=== PATIENT | male | born 1970 | race Caucasian/White ===

== ENCOUNTER → 2016-10-22 | Outpatient (CLI) | payer BC ==
[~2016-10-22] MED LIST: CATHETER FLUSH 10 ML SYR IV PRN
[2016-10-22 10:52] VITALS: BP 120/84
--- NOTE | 2016-10-22 18:53 | STRESS TEST ---
PROCEDURE PHYSICIAN: MARVA EGAN DATE OF PROCEDURE: 10/22/2016 EXERCISE MYOVIEW STRESS TEST REPORT INDICATION FOR THE PROCEDURE: Chest pain. BASELINE HEART RATE: 46 BASELINE BLOOD PRESSURE: 120/84 BASELINE EKG: Sinus rhythm with no ischemic changes. SUMMARY: The patient was injected with 10.01 mCi of technetium 99 Myoview and the resting images were obtained. Then the patient started exercising with baseline heart rate, blood pressure, EKG mentioned above. At minute 9 and 40 seconds, the patient was injected with 30.1 mCi of technetium 99 Myoview. The patient was able to finish a total of 10 minutes 45 seconds on standard Armani protocol, achieving maximum heart rate of 161, which is 94% of maximum expected heart rate. With peak exercise level, EKG was showing no ischemic changes. Blood pressure was 170/108 at peak. During recovery, heart rate returned to baseline, had transient episode of ventricular bigeminy. Blood pressure returned to baseline. The resting and stress images were reviewed and compared in the short axis, horizontal long axis, and vertical long axis views. Review of the images showed diaphragmatic attenuation with decreased uptake at the basal to mid inferior wall, with no significant ischemia. SSS is 0. TID value 0.94. On the gated images, the left ventricle appeared to be normal size with normal contractility. Calculated ejection fraction 52%. CONCLUSION: 1. Excellent exercise tolerance a total of 10 minutes 45 seconds on standard Armani protocol. Total of 12.8 METs, achieving 94% of maximum expected heart rate. 2. Transient episode of ventricular bigeminy noted during recovery, otherwise, no arrhythmia was noted. 3. Nondiagnostic EKG changes with exercise. Returned to baseline during recovery. 4. Diaphragmatic attenuation with no significant ischemia or infarction on SPECT images. 5. Normal left ventricular size with normal contractility. Calculated ejection fraction 52%. Job ID: [id number] Dictated Date: 10/22/2016 17:14:48 Spindle Plumber Date: 10/22/2016 18:49:41 / crow
--- NOTE | 2016-10-24 09:23 | ECHOCARDIOGRAPHY REPORT ---
PROCEDURE PHYSICIAN: MARVA EGAN DATE OF PROCEDURE: 10/22/2016 TWO DIMENSIONAL ECHOCARDIOGRAM REPORT PRIMARY PHYSICIAN: OTHER PHYSICIAN: REFERRING PHYSICIAN: ORDERING PHYSICIAN: INDICATION FOR THE PROCEDURE: Chest pain. MEASUREMENTS DERIVED VALUES LV DIAMETER (LAX) NORMALS NORMALS Diastolic 4.8 (3.6-5.2) Eject. Fract. 60% (60%+/-6%) Systolic (2.3-3.9) Diastolic Vol. % Shortening (0.22-0.42) Systolic Vol. Aortic Root IVS THICKNESS Diastolic 1.2 (0.6-1.1) LVPW THICKNESS Diastolic 1.2 (0.6-1.1) LA DIAMETER Systolic 3.7 (2.1-3.7) FINDINGS: 1. Technical quality is good. 2. The left ventricle is normal in size with normal contractility. Systolic function appeared to be normal. Estimated ejection fraction 60%. 3. The left atrium is normal in size. No clot or thrombus were seen within the left atrium. 4. The right atrium and right ventricle are normal in size. No clot or thrombus were seen within the right side. 5. Mitral valve is normal in morphology with mild mitral regurgitation noted by color Doppler flow. No mitral valve prolapse. No mitral valve stenosis. 6. Aortic valve is trileaflet with normal opening and closing pattern. No significant aortic valve stenosis was noted. Mild aortic regurgitation noted by color Doppler flow. 7. Tricuspid valve is normal in morphology with mild tricuspid regurgitation noted by color Doppler flow. Doppler across tricuspid valve estimated pulmonary artery pressure of 9+ right atrial pressure. 8. Pulmonic valve is functioning normally. 9. No pericardial effusion. IN CONCLUSION: 1. Normal left ventricular size and systolic function. Estimated ejection fraction 60%. 2. Mild mitral and tricuspid regurgitation. 3. Mild aortic regurgitation. 4. Estimated pulmonary artery pressure of 15 mmHg. Job ID: [id number] Dictated Date: 10/23/2016 16:07:21 Eeg Tech Date: 10/24/2016 09:18:49 / mary
== END ==
LOC: CARD 08:16
PROVIDERS: ATTEND Internal Medicine Cardiovascular Disease
DX: R07.89 Other chest pain (principal); I10 Essential (primary) hypertension; R00.2 Palpitations; R06.02 Shortness of breath; Z72.0 Tobacco use
CPT/HCPCS: 78452; 93017; 93306

== ENCOUNTER → 2018-08-20 | Outpatient (CLI) | payer BC ==
--- NOTE | 2018-08-20 08:23 | Diagnostic Imaging Report ---
PROCEDURE: CT abdomen and pelvis without contrast. TECHNIQUE: Multiple contiguous axial images were obtained through the abdomen and pelvis without the use of intravenous contrast. INDICATION: Microhematuria. COMPARISON: No prior studies are available for comparison. FINDINGS: The lung bases are clear. The liver and gallbladder are unremarkable. The pancreas and spleen are unremarkable. No adrenal mass is detected. No renal calculi or hydronephrosis is identified. There is a suggestion of a small cortical low densities involving both kidneys, too small to characterize but likely small cysts. The bladder is decompressed, limiting evaluation. Ureters are nondilated. Aorta is nonaneurysmal. The small and large bowel loops are normal caliber. Appendix is unremarkable. There is no ascites. No definite abdominal or pelvic lymphadenopathy is seen. Bony structures are nonacute. IMPRESSION: Essentially unremarkable noncontrast CT of the abdomen and pelvis. Dictated by: Dictated on workstation # [id number]
== END ==
LOC: RAD 07:37
PROVIDERS: ATTEND Urology
DX: R31.29 Other microscopic hematuria (principal); Z87.442 Personal history of urinary calculi
CPT/HCPCS: 74176

== ENCOUNTER 2019-12-28 11:28 | Emergency (ER) | payer BC, OTHER ==
[~2019-12-28] VITALS: Ht 182 cm; Wt 93.9 kg
--- NOTE | 2019-12-28 11:56 | ED Abdominal Pain ---
General Chief Complaint: Abdominal/GI Problems Stated Complaint: RLQ PAIN; NAUSEA; FEVER; DIARRHEA Nursing Triage Note: Started having diarrhea and RLQ abdominal pain at 0930 this morning. Had just returned from a camping trip this morning. Has vomited 6 times, but not large amounts. Has had 3 diarrhea stools. Is unsure of color. Is rating pain at 3/10 but was previously 9/10. Has not taken anything for pain. No previous abdominal surgeries. Denies fevers. Sepsis Screen: No Definite Risk Source of Information: Patient Exam Limitations: No Limitations History of Present Illness Date Seen by Provider: December 28, 2019 Time Seen by Provider: 11:40 Initial Comments 49-year-old male presents to the emergency room after a camping trip and reports that he had immediate and sudden pain in his right lower quadrant at 9:30 this morning. Patient denied any trauma and denies any prior event. She states the pain was sudden extremely painful 9/10 and resolved but still is painful 3/10 now patient states he's worried about appendicitis. He states he had an episode of diarrhea he finally did 6 times he feels chills but is normal temperature at this time. He is not taking anything for pain at this time he has given informed consent for diagnostic and therapeutic services. He has no history of cardiac pulmonary GI or renal disease. Negative psoas and negative obturator signs No prior history of surgeries. Anterior abdominal wall that is somewhat reddened from what appears to be excoriation but no breaks in the skin. This dictation utilizes [employer] software. Efforts have been made to correct all errors. Some errors or able to penetrate the review process. This is not an intentional event. If you have any questions regarding this dictation please contact Jayesh Collins [phone] Timing/Duration: 1-3 Hours Severity/Quality: Moderate (valve patient states it was severe 2 hours ago) Location: RLQ (severe stabbing pain in tenths 2 hours ago now continues to ache) Radiation: Back Activities at Onset: Activity (unpacking truck), Rest Modifying Factors: Improves With Breathing, Improves With Lying down, Improves With Vomiting Associated Symptoms: Back Pain (lumbar paraspinal spasms -negative JEYSON negative obturator sign patient does have pain on palpation pain and rebound), Nausea/Vomiting, Weakness Allergies and Home Medications Allergies Coded Allergies: ciprofloxacin (Verified Allergy, Unknown, hives, itching, 12/28/19) Patient Home Medication List Home Medication List Reviewed: Yes Review of Systems Review of Systems Constitutional: see HPI, chills, weakness (from right lower quadrant pain) EENTM: No Symptoms Reported Respiratory: No Symptoms Reported Cardiovascular: No Symptoms Reported Gastrointestinal: See HPI, Abdominal Pain (right lower quadrant negative psoas and negative upgrader signs), Nausea, Vomiting Genitourinary: See HPI Musculoskeletal: see HPI, back pain (lumbar paraspinal muscles right side spast ic), muscle stiffness (right side flank) Skin: no symptoms reported (however patient has excoriated the lower abdominal wall no open lesions) Psychiatric/Neurological: See HPI, Anxiety Endocrine: No Symptoms Reported Hematologic/Lymphatic: No Symptoms Reported Past Xnepnzk-Ayfgiu-Wjmema Hx Past Med/Social Hx: Reviewed Nursing Past Med/Soc Hx Patient Social History Alcohol Use: Occasionally Uses Recreational Drug Use: No Smoking Status: Current Everyday Smoker Type Used: Cigarettes 2nd Hand Smoke Exposure: Yes Recent Foreign Travel: No Contact w/Someone Who Travel: No Recent Infectious Disease Expo: No Recent Hopitalizations: No Seasonal Allergies Seasonal Allergies: No Past Medical History Surgeries: Yes (ganglion cyst; ) Orthopedic Respiratory: No Cardiac: Yes Hypertension Neurological: Yes Headaches /Migraines Genitourinary: No Gastrointestinal: No Musculoskeletal: No Endocrine: No HEENT: No Cancer: No Psychosocial: No Integumentary: No Family Medical History Reviewed Nursing Family Hx Physical Exam Vital Signs Vital Signs - First Documented 12/28/19 11:32 Temp 35.9 Pulse 67 Resp 16 B/P (MAP) 143/101 (115) Pulse Ox 94 Capillary Refill : Less Than 3 Seconds Height/Weight/BMI Height: '" Weight: lbs. oz. kg; 28.00 BMI Method: General Appearance: moderate distress (and reports it was severe 2 hours ago) HEENT: PERRL/EOMI, normal ENT inspection, pharynx normal Neck: non-tender, full range of motion, supple, normal inspection Respiratory: chest non-tender, lungs clear, normal breath sounds, no respiratory distress, no accessory muscle use Cardiovascular: regular rate, rhythm, no edema, no gallop, no JVD, no murmur Peripheral Pulses: 2+ Carotid (R), 2+ Carotid (L) Gastrointestinal: normal bowel sounds, non tender, soft, no organomegaly, no pulsatile mass, other (negative operators and negative psoas sign) Extremities: normal range of motion, non-tender, normal inspection, no pedal edema, no calf tenderness Back: normal inspection, no vertebral tenderness, CVA tenderness (R) Neurologic/Psychiatric: line up examiner II-XII nml as tested, no motor/sensory deficits, al ert, normal mood/affect, oriented x 3 Skin: normal color, warm/dry Lymphatic: no adenopathy Focused Exam Lactate Level 12/28/19 12:10: Lactic Acid Level 0.83 Lactic Acid Level Laboratory Tests Test 12/28/19 12:10 Lactic Acid Level 0.83 MMOL/L (0.50-2.00) Progress/Results/Core Measures Results/Orders Lab Results Laboratory Tests Test 12/28/19 11:58 12/28/19 12:10 Range/Units Urine Color YELLOW Urine Clarity SLT CLOUDY Urine pH 5.5 5-9 Urine Specific [place] >=1.030 1.016-1.022 Urine Protein 2+ H NEGATIVE Urine Glucose (UA) NEGATIVE NEGATIVE Urine Ketones NEGATIVE NEGATIVE Urine Nitrite NEGATIVE NEGATIVE Urine Bilirubin 1+ H NEGATIVE Urine Urobilinogen 0.2 < = 1.0 MG/DL Urine Leukocyte Esterase NEGATIVE NEGATIVE Urine RBC (Auto) 3+ H NEGATIVE Urine RBC 25-50 H /HPF Urine WBC NONE /HPF Urine Squamous Epithelial Cells NONE /HPF Urine Crystals NONE /LPF Urine Bacteria NEGATIVE /HPF Urine Casts NONE /LPF Urine Mucus SMALL H /LPF Urine Culture Indicated NO White Blood Count 5.9 4.3-11.0 10^3/uL Red Blood Count 5.42 4.35-5.85 10^6/uL Hemoglobin 17.2 13.3-17.7 G/DL Hematocrit 49 40-54 % Mean Corpuscular Volume 90 80-99 FL Mean Corpuscular Hemoglobin 32 25-34 PG Mean Corpuscular Hemoglobin Concent 35 32-36 G/DL Red Cell Distribution Width 12.8 10.0-14.5 % Platelet Count 157 130-400 10^3/uL Mean Platelet Volume 9.4 7.4-10.4 FL Neutrophils (%) (Auto) 63 42-75 % Lymphocytes (%) (Auto) 23 12-44 % Monocytes (%) (Auto) 10 0-12 % Eosinophils (%) (Auto) 4 0-10 % Basophils (%) (Auto) 0 0-10 % Neutrophils # (Auto) 3.7 1.8-7.8 X 10^3 Lymphocytes # (Auto) 1.3 1.0-4.0 X 10^3 Monocytes # (Auto) 0.6 0.0-1.0 X 10^3 Eosinophils # (Auto) 0.3 0.0-0.3 10^3/uL Basophils # (Auto) 0.0 0.0-0.1 10^3/uL Neutrophils % (Manual) 61 % Lymphocytes % (Manual) 29 % Monocytes % (Manual) 4 % Eosinophils % (Manual) 5 % Basophils % (Manual) 1 % Band Neutrophils 0 % Prothrombin Time 13.6 12.2-14.7 SEC INR Comment 1.0 0.8-1.4 Activated Partial Thromboplast Time 24 24-35 SEC Sodium Level 143 135-145 MMOL/L Potassium Level 4.1 3.6-5.0 MMOL/L Chloride Level 109 H 98-107 MMOL/L Carbon Dioxide Level 24 21-32 MMOL/L Anion Gap 10 5-14 MMOL/L Blood Urea Nitrogen 12 7-18 MG/DL Creatinine 1.26 0.60-1.30 MG/DL Estimat Glomerular Filtration Rate 60 BUN/Creatinine Ratio 10 Glucose Level 104 70-105 MG/DL Lactic Acid Level 0.83 0.50-2.00 MMOL/L Calcium Level 9.3 8.5-10.1 MG/DL Corrected Calcium 9.1 8.5-10.1 MG/DL Total Bilirubin 0.7 0.1-1.0 MG/DL Aspartate Amino Transf (AST/SGOT) 19 5-34 U/L Alanine Aminotransferase (ALT/SGPT) 24 0-55 U/L Alkaline Phosphatase 92 40-136 U/L Total Protein 7.3 6.4-8.2 GM/DL Albumin 4.3 3.2-4.5 GM/DL My Orders Orders - JAYESH COLLINS DO Cbc And Manual Diff (12/28/19 11:47) Comprehensive Metabolic Panel (12/28/19 11:47) Lactic Acid Analyzer (12/28/19 11:47) Blood Culture (12/28/19 11:47) Urinalysis (12/28/19 11:47) Partial Thromboplastin Time (12/28/19 11:47) Protime With Inr (12/28/19 11:47) Ct Abd/Pelv W (Appendicitis) (12/28/19 11:47) Chest 1 View Ap/Pa Only (12/28/19 11:47) Ns Iv 1000 Ml (Sodium Chloride 0.9%) (12/28/19 12:00) Nothing By Mouth (12/28/19 Dinner) Iohexol Injection (Omnipaque 350 Mg/Ml 1 (12/28/19 12:45) Received Contrast (Hold Metformin- Contr (12/28/19 12:45) Sodium Chloride Flush (Catheter Flush Sy (12/28/19 12:45) Ns (Ivpb) (Sodium Chloride 0.9% Ivpb Bag (12/28/19 12:45) Medications Given in ED Current Medications Medications Dose Ordered Sig/Ashutosh Route Start Time Stop Time Status Last Admin Dose Admin Iohexol 100 ml ONCE ONCE IV 12/28/19 12:45 12/28/19 12:46 DC 12/28/19 13:30 100 ML Sodium Chloride 10 ml NEEDED PRN IV 12/28/19 12:45 12/28/19 13:23 10 ML Sodium Chloride 100 ml ONCE ONCE IV 12/28/19 12:45 12/28/19 12:46 DC 12/28/19 13:30 80 ML Sodium Chloride 1,000 ml @ 100 mls/hr Q10H ONCE IV 12/28/19 12:00 12/28/19 21:59 12/28/19 12:09 100 MLS/HR Vital Signs/I&O 12/28/19 11:32 Temp 35.9 Pulse 67 Resp 16 B/P (MAP) 143/101 (115) Pulse Ox 94 Blood Pressure Mean: 115 Progress Progress Note : Time: 14:30 Progress Note Patient has negative CT scan for appendicitis. He has been informed and he will follow-up with his primary care provider. He also has a slight abnormality in the right upper chest which is unrelated to any of the presentation. Patient will follow up with his primary care provider for continued evaluation and care this could be simply an overlapping osseous structure IMPRESSION: 1. There is no evidence for an acute abnormality at the abdomen and pelvis. In particular there is no sign of appendicitis. 2. The hiatal hernia seen previously is again evident perhaps somewhat more prominent. Initial ECG Impression Date: December 28, 2019 Departure Impression Primary Impression: Nausea and vomiting Additional Impressions: Abdominal pain Dehydration Disposition: 01 HOME, SELF-CARE Condition: Improved Departure-Patient Inst. Decision time for Depature: 14:32 Referrals: SUSY ALBA MD (PCP/Family) Primary Care Physician Patient Instructions: Dehydration, Adult (DC), Nausea and Vomiting, Adult, Viral Gastroenteritis, Adult (DC) Add. Discharge Instructions: Fluids and rest patient's evaluation was negative for appendicitis. IMPRESSION: 1. There is no evidence for an acute abnormality at the abdomen and pelvis. In particular there is no sign of appendicitis. 2. The hiatal hernia seen previously is again evident perhaps somewhat more prominent. Patient will continue on clear fluids and follow-up with primary care provider. Is mild abnormality which is unrelated to the patient's presentation in the right upper lung that needs to be pursued by the primary care provider. This could be an overlap of an osseous structure. All discharge instructions reviewed with patient and/or family. Voiced understanding. Scripts Ondansetron HCl (Zofran) 4 Mg Tab 4 MG PO Q6H for Nausea for 5 Days, #20 TAB Prov: JAYESH COLLINS DO 12/28/19 Copy Copies To 1: SUSY ALBA MD, ANTHONY H DO December 28, 2019 11:56
[2019-12-28] MEDS ORDERED: NS IV 1000 ML 1,000 ML IV ONE (12:00)
[2019-12-28 12:34] LABS: HEMATOCRIT 49 % (40-54); HEMOGLOBIN 17.2 G/DL (13.3-17.7); MEAN CORPUSCULAR HEMOGLOBIN 32 PG (25-34); MEAN CORPUSCULAR HGB CONC 35 G/DL (32-36); MEAN CORPUSCULAR VOLUME 90 FL (80-99); MEAN PLATELET VOLUME 9.4 FL (7.4-10.4); PLATELET COUNT 157 10^3/uL (130-400); RED CELL DISTRIBUTION WIDTH 12.8 % (10.0-14.5); WHITE BLOOD COUNT 5.9 10^3/uL (4.3-11.0)
[2019-12-28 12:35] LABS: BASOPHILS % (AUTO) 0 % (0-10); EOSINOPHILS # (AUTO) 0.3 10^3/uL (0.0-0.3); EOSINOPHILS % (AUTO) 4 % (0-10); LYMPHOCYTES # (AUTO) 1.3 X 10^3 (1.0-4.0); LYMPHOCYTES % (AUTO) 23 % (12-44); MONOCYTES # (AUTO) 0.6 X 10^3 (0.0-1.0); MONOCYTES % (AUTO) 10 % (0-12); NEUTROPHILS # (AUTO) 3.7 X 10^3 (1.8-7.8); NEUTROPHILS % (AUTO) 63 % (42-75)
[2019-12-28] MEDS ORDERED: IOHEXOL 350 MG/ML 100 ML (OMNIPAQUE 350) VIAL IV ONE (12:45)
[2019-12-28] MEDS ORDERED: CATHETER FLUSH 10 ML SYR IV PRN (12:45)
[2019-12-28] MEDS ORDERED: NS 100 ML (IVPB) BAG IV ONE (12:45)
[2019-12-28] MEDS ORDERED: HOLD METFORMIN - RECEIVED CONTRAST 20 ML VIAL IV SCH (12:45)
[2019-12-28 12:52] LABS: POTASSIUM 4.1 MMOL/L (3.6-5.0)
[2019-12-28 12:53] LABS: ALBUMIN 4.3 GM/DL (3.2-4.5); BILIRUBIN,TOTAL 0.7 MG/DL (0.1-1.0); CALCIUM 9.3 MG/DL (8.5-10.1); CREATININE SERUM 1.26 MG/DL (0.60-1.30); TOTAL PROTEIN 7.3 GM/DL (6.4-8.2)
[2019-12-28 12:54] LABS: PROTHROMBIN TIME PATIENT 13.6 SEC (12.2-14.7)
[2019-12-28 13:08] LABS: CLARITY,URINE SLT CLOUDY; COLOR,URINE YELLOW; GLUCOSE, URINE (UA) NEGATIVE (NEGATIVE); KETONES,URINE NEGATIVE (NEGATIVE); NITRITE,URINE NEGATIVE (NEGATIVE); PH,URINE 5.5 (5-9); PROTEIN,URINE 2+ (NEGATIVE)
[2019-12-28 13:09] LABS: BACTERIA,URINE NEGATIVE /HPF; BILIRUBIN,URINE 1+ (NEGATIVE); LEUKOCYTE ESTERASE ,URINE NEGATIVE (NEGATIVE); RBC,URINE 25-50 /HPF
--- NOTE | 2019-12-28 13:50 | Diagnostic Imaging Report ---
PROCEDURE: CT abdomen and pelvis with contrast, rule out appendicitis. TECHNIQUE: Multiple contiguous axial images were obtained through the abdomen and pelvis after the administration of intravenous contrast. All CT scans use one or more of the following dose optimizing techniques: automated exposure control, MA and/or KvP adjustment based on a patient size and exam type, or iterative reconstruction. INDICATION: Right lower quadrant pain. The previous CT abdomen/pelvis exam 08/20/2018 failed to show any sign of an acute abnormality of the abdomen or pelvis. On this exam the appendix was visualized and is not abnormally thickened. There is no distortion of the periappendiceal fat to suggest acute appendicitis either. There is no pelvic mass or free fluid collection noted. The urinary bladder and prostate gland are grossly unremarkable. The liver is homogeneous and not enlarged. The spleen, pancreas, gallbladder, adrenals, kidneys, aorta and inferior vena cava are unremarkable for an acute abnormality. There is a 1.3 cm cyst on the posterior aspect of the right kidney. The stomach is not well-distended and difficult to evaluate. There is a 4.1 cm hiatal hernia. This was also present on the prior exam although it does seem somewhat more prominent this study. The lung bases are generally clear. The bone windows show no sign of a fracture or destructive lesion. IMPRESSION: 1. There is no evidence for an acute abnormality at the abdomen and pelvis. In particular there is no sign of appendicitis. 2. The hiatal hernia seen previously is again evident perhaps somewhat more prominent. Dictated by: Dictated on workstation # [id number]
--- NOTE | 2019-12-28 13:53 | Diagnostic Imaging Report ---
Chest, one view at 1:26. Indication: Right upper quadrant pain. There are no prior studies available for comparison. The heart size is within normal limits. The lungs are generally clear. There is no sign of failure, pneumonia or pleural effusion. There is a small area of increased density along the medial aspect of the right upper lobe. This finding is more likely due to superimposition of the osseous structures and the bronchovascular markings than to a parenchymal lesion. Even so, an apical lordotic view would be recommended for further evaluation unless there are previous studies available to demonstrate that this finding is stable. The mediastinum is not widened. The osseous structures are intact. Impression: 1. There is no evidence for an acute cardiopulmonary abnormality. 2. The area of increased density along the medial aspect of the left lung is of uncertain etiology. Considerations and recommendations as above. Dictated by: Dictated on workstation # [id number]
[2019-12-28 14:01] LABS: BAND NEUTROPHILS 0 %; BASOPHILS % (MANUAL) 1 %; EOSINOPHILS % (MANUAL) 5 %; LYMPHOCYTES % (MANUAL) 29 %; MONOCYTES % (MANUAL) 4 %; NEUTROPHILS % (MANUAL) 61 %
[2019-12-28] MEDS ORDERED: ONDN4T PO (14:37)
[2019-12-28 14:50] VITALS: BP 138/95
== END 2019-12-28 14:50 | disposition home or self-care (01) ==
LOC: ER FS 11:28
DX: E86.0 Dehydration (principal); R10.31 Right lower quadrant pain; F17.210 Nicotine dependence, cigarettes, uncomplicated; Z88.1 Allergy status to other antibiotic agents
CPT/HCPCS: 36415; 71045; 74177; 80053; 81000; 83605; 85007; 85027; 85610; 85730; 87040

== ENCOUNTER 2020-03-01 05:36 | Outpatient (RCR) | payer BC ==
[~2020-03-01] VITALS: Ht 182.9 cm; Wt 92.0 kg
[~2020-03-01 05:36] MED LIST changes: -CATHETER FLUSH 10 ML SYR IV PRN; +ONDN4T PO
[2020-03-01] MEDS ORDERED: BUPR100T7 PO (09:26)
[2020-03-01] MEDS ORDERED: LISI10TA2 PO (09:26)
== END 2020-03-01 10:09 | disposition home or self-care (01) ==
LOC: PREOP 05:36 → EDSTATUS 09:45 → PREOP 10:09
PROVIDERS: ATTEND Surgery
DX: Z01.818 Encounter for other preprocedural examination (principal)

== ENCOUNTER 2020-03-08 07:56 | Day surgery (SDC) | payer BC ==
[~2020-03-08] VITALS: Ht 182.9 cm; Wt 92.0 kg
[~2020-03-08 07:56] MED LIST changes: +BUPR100T7 PO; +LISI10TA2 PO
[2020-03-08] MEDS ORDERED: LACTATED RINGERS 1,000 ML IV ONE (08:15)
[2020-03-08] MEDS ORDERED: LACTATED RINGERS 1,000 ML IV STA (08:15)
[2020-03-08] MEDS ORDERED: MIDAZOLAM 2 MG/2 ML (VERSED) VIAL ONE (08:19)
[2020-03-08] MEDS ORDERED: proPOfol 200 MG/20 ML (DIPRIVAN) VIAL IV ONE (08:19)
[2020-03-08 08:29] VITALS: BP 126/88
[2020-03-08 09:10] VITALS: BP 153/104
--- NOTE | 2020-03-08 09:14 | Progress Note-Post Operative ---
Post-Operative Progess Note Surgeon (s)/Billiard Table Repairer (s) Surgeon CIPRIANO BAJWA DO Billiard Table Repairer: na Pre-Operative Diagnosis screening colonoscopy Post-Operative Diagnosis colon polyps Procedure & Operative Findings Date of Procedure 03/08/20 Procedure Performed/Findings colonoscopy c hot bx polypectomy x 3 Anesthesia Type per mda Estimated Blood Loss Estimated blood loss (mL): none Specimens/Packing Specimens Removed colon polyps CIPRIANO BAJWA DO Mar 08, 2020 09:14
[2020-03-08 09:15] VITALS: BP 129/88
--- NOTE | 2020-03-08 09:15 | Discharge Inst-Simple/Standard ---
Discharge Inst-Standard Patient Instructions/Follow Up Plan of Care/Instructions/FU: 2 weeks donald Activity as Tolerated: Yes Discharge Diet: Regular Diet CIPRIANO BAJWA DO Mar 08, 2020 09:15
[2020-03-08 09:40] VITALS: BP 143/104
[2020-03-08 09:50] VITALS: BP 143/104
--- NOTE | 2020-03-08 12:52 | OPERATIVE REPORT ---
DATE OF SERVICE: 03/08/2020 PREOPERATIVE DIAGNOSIS: Screening colonoscopy. POSTOPERATIVE DIAGNOSIS: Colon polyps. PROCEDURE: Colonoscopy with hot biopsy polypectomy x3. SURGEON: Cipriano Trejo DO ANESTHESIA: Per MDA. ESTIMATED BLOOD LOSS: None. COMPLICATIONS: None. INDICATIONS: The patient is a 49-year-old male needing screening colonoscopy. He understands risks and benefits of procedure and wished to proceed with procedure. Consent was signed in the chart. DESCRIPTION OF PROCEDURE: The patient was taken to the endoscopy suite, placed in left lateral recumbent position. Timeout was performed. Digital rectal exam was performed. There were no palpable polyps, masses or ulcerations. Scope was inserted in the rectum, advanced all the way to cecum with minimal difficulty. Prep was adequate. Scope was then slowly retracted back. There were no polyps, masses or ulcerations in the cecum and ascending colon, transverse colon near the hepatic flexure two small polyps were present, which hot biopsy polypectomy was performed. Scope was then continuously retracted back through the transverse colon to the splenic flexure where another larger polyp was present, which hot biopsy polypectomy was performed. Scope was then continuously retracted back. There were no other polyps, masses or ulcerations within the descending sigmoid colon. Once in the rectum, scope was retroflexed noting no other pathology. Scope was returned to its normal position, slowly withdrawn until completely removed. The patient tolerated procedure well without any complications. He was taken to recovery room in stable condition. RECOMMENDATIONS: The patient will need repeat colonoscopy in 3 to 5 years. The patient will follow up in 2 weeks to discuss pathology results. If he has any issues before, repeat colonoscopy would recommend repeating at that time. Job ID: [id number] DocumentID: [id number] Dictated Date: 03/08/2020 09:17:58 General Accounting Clerk Date: 03/08/2020 12:51:21 Dictated By: CIPRIANO TREJO DO
--- NOTE | 2020-03-08 15:23 | Anesthesia-General Post-Op ---
General Patient Condition Mental Status/LOC: Same as Preop Cardiovascular: Satisfactory Nausea/Vomiting: Absent Respiratory: Satisfactory Pain: Controlled Complications: Absent Post Op Complications Complications None Follow Up Care/Instructions Patient Instructions None needed. Anesthesia/Patient Condition Patient Condition Patient was seen this morning after the procedure and he was doing well, no complaints, stable vital signs, no apparent adverse anesthesia problems. MILANA LAUGHLIN DO Mar 08, 2020 15:23
== END 2020-03-08 09:50 | disposition home or self-care (01) ==
LOC: ENDO 07:56
PROVIDERS: ATTEND Surgery
DX: Z12.11 Encounter for screening for malignant neoplasm of colon (principal); D12.3 Benign neoplasm of transverse colon; I10 Essential (primary) hypertension; F17.210 Nicotine dependence, cigarettes, uncomplicated; Z79.899 Other long term (current) drug therapy; Z88.1 Allergy status to other antibiotic agents

== ENCOUNTER 2020-09-29 16:40 | Emergency (ER) | payer BC ==
[~2020-09-29] VITALS: Ht 182.8 cm; Wt 99.5 kg
[~2020-09-29 16:40] MED LIST changes: -LISI10TA2 PO; +LISI10TA25 PO
[2020-09-29] MEDS ORDERED: LIDOCAINE 1% INJ 20 ML 20 ML VIAL INJ STA (16:49)
[2020-09-29] MEDS ORDERED: AUGMENTIN 875 MG TAB (AMOXICILLIN/CLAVULANATE) PO STA (16:49)
--- NOTE | 2020-09-29 16:51 | ED Upper Extremity ---
General Stated Complaint: LT HAND INJ Source: patient History of Present Illness Date Seen by Provider: Sep 29, 2020 Time Seen by Provider: 16:41 Initial Comments 50 yo male presenting with left index finger injury from home. He caught his finger between wood and a wood splitter at home. This happened just prior to coming to the ED. He is right hand dominant. His last tetanus booster was less than 5 years ago. He still has intact sensation. He can still move the tip of his finger. He denies any other injuries. Onset: just prior to arrival Severity: moderate Pain/Injury Location: left 2nd finger Method of Injury: direct blow (crush injury with wood splitter) Modifying Factors: Worse With Movement Allergies and Home Medications Allergies Coded Allergies: ciprofloxacin (Verified Allergy, Unknown, hives, itching, 12/28/19) Home Medications Amoxicillin/Potassium Clav 1 Each Tablet, 1 EACH PO BID Prescribed by: ODALYS ROBERTS on 09/29/201849 Hydrocodone/Acetaminophen 1 Each Tablet, 1 TAB PO Q8H PRN for PAIN-SEVERE (8-10) Prescribed by: ODALYS BOLDENRT on 09/29/201849 Ibuprofen 800 Mg Tablet, 800 MG PO Q8H PRN for PAIN Prescribed by: ODALYS Mcmullen ENYART on 09/29/201849 Lisinopril 10 Mg Tablet, 10 MG PO DAILY, (Reported) Patient Home Medication List Home Medication List Reviewed: Yes Review of Systems Constitutional: No chills, No fever EENTM: no symptoms reported Respiratory: no symptoms reported Cardiovascular: no symptoms reported Gastrointestinal: no symptoms reported Genitourinary: no symptoms reported Musculoskeletal: see HPI Skin: see HPI, other (laceration to flexor surface of left index finger at DIP joint) Psychiatric/Neurological: Denies Numbness, Denies Paresthesia Past [id number]-Eocmty-Nlzzqf Hx Past Med/Social Hx: Reviewed Nursing Past Med/Soc Hx Patient Social History Type Used: Cigarettes 2nd Hand Smoke Exposure: Yes Recent Hopitalizations: No Immunizations Up To Date Tetanus Booster (TDap): Less than 5yrs Seasonal Allergies Seasonal Allergies: No Past Medical History Surgeries: Yes (ganglion cyst; ) Orthopedic Respiratory: No Currently Using CPAP: No Currently Using BIPAP: No Cardiac: Yes Hypertension Neurological: Yes Headaches /Migraines Sexually Transmitted Disease: No HIV/AIDS: No Genitourinary: No Gastrointestinal: No Musculoskeletal: No Endocrine: No HEENT: No Loss of Vision: Denies Hearing Impairment: Denies Cancer: No Psychosocial: No Integumentary: No Blood Disorders: No Physical Exam Vital Signs Vital Signs - First Documented 09/29/20 16:43 Temp 36.6 Pulse 70 Resp 20 B/P (MAP) 150/99 (116) Pulse Ox 96 O2 Delivery Room Air Capillary Refill : Height, Weight, BMI Height: '" Weight: lbs. oz. kg; 27.50 BMI Method: General Appearance: WD/WN, no apparent distress Cardiovascular: normal peripheral pulses Hand: laceration (left index finger flexor surface at DIP joint), soft tissue tenderness (left index finger at finger tip) Neurologic/Tendon: normal sensation, normal motor functions, normal tendon functions Neurologic/Psychiatric: alert, oriented x 3 Skin: normal color, warm/dry Procedures/Interventions Wound Location: Upper Extremities (left index finger DIP joint flexor surface) Wound Length (cm): 1.4 Wound's Depth, Shape: flap, contused tissue, sub Q Wound Explored: clean Betadine Prep?: Yes Anesthesia: 1% Lidocaine (digital block and tornicot) Volume Anesthetic (ccs): 8 Suture: Ethlion Suture Size: 4-0 Number of Sutures: 6 Layer Closure?: 1 Sterile Dressing Applied?: Yes Progress After obtaining verbal consent from the patient a digital block was placed using 1% plain lidocaine. A total of 8 mL of lidocaine were infiltrated around the base of the index finger. Then the turnicot was applied at 1800. This was removed at 1840 at the end of the procedure. After the digital block the patient had good anesthetic effect. The wound was further scrubbed with chlorhexidine scrub soap and sterile water. There were no foreign body seen. There were no tendon injuries or bone fragments seen in the wound. The wound edges were approximated using 4-0 Ethilon and 6 simple interrupted stitches were placed. The wound edges were well approximated and patient tolerated procedure well without any immediate complications. The tissue was obviously contused and bruised. Counseled that he could still have compromised her loss of tissue due to the crush injury and to closely monitor his injury. Follow-up within a week with primary and he may need to see orthopedics as well. If Dr. Alba is not comfortable following and managing his injury and removing his stitches he may need to see orthopedics. The stitches should be removed in 2 weeks or more. He should continue to use the splint and keep the wound clean and covered for at least the next 2 weeks. Counseled on monitoring for infection and follow-up and return precautions. Prescribed Augmentin to help try and prevent infection. Prescribed a few hydrocodone for severe pain as well as ibuprofen for inflammation and pain. Progress/Results/Core Measures Results/Orders My Orders Orders - ODALYS ROBERTS MD Finger(S) (09/29/20 16:49) Amoxicillin/Clavulanate Tablet (Augmenti (09/29/20 16:49) Lidocaine 1% Inj 20 Ml (Xylocaine 1% Inj (09/29/20 16:49) Suture Set At Bedside (09/29/20 16:49) Vital Signs/I&O 09/29/20 09/29/20 16:43 18:59 Temp 36.6 36.4 Pulse 70 65 Resp 20 20 B/P (MAP) 150/99 (116) 151/86 (116) Pulse Ox 96 96 O2 Delivery Room Air Room Air Progress Progress Note #1: Progress Note xray the index finger to look for bony injury. clean finger in betadine and sterile water. Progress Note #2: Progress Note xray shows possible small nondisplaced cortical fracture of distal phalanx. Will treat with antibiotics for possible open fracture. Cleaned and repaired laceration with 6 simple interrupted 4-0 ethilon stitches. Counseled on follow up and return precautions. Diagnostic Imaging Diagonstic Imaging: Xray Plain Films/CT/US/NM/MRI: other (left index finger/hand) Comments [facility]. [place], [place] NAME: [facility] REC#: [id number] PT STATUS: REG ER : 1970 PHYSICIAN: ODALYS ROBERTS MD ADMIT DATE: 09/29/20/ER FS Draft Date of Exam:09/29/20 FINGER(S) INDICATION: 2nd digit injury. COMPARISON: None. EXAMINATION: Three views of the left 2nd digit. FINDINGS: Cortical defect involving the posterior aspect of the base of the distal phalanx. This is probably a nondisplaced fracture. There is no intra-articular involvement. No foreign body is seen. IMPRESSION: Questionable cortical fracture at posterior base of the distal phalanx. Please correlate with point tenderness. Dictated on workstation # [id number] Dict: 09/29/201699 Trans: 09/29/201703 [facility] [id number] Interpreted by: JAILENE CONTEH Electronically signed by: Departure Impression Primary Impression: Crushing injury of left index finger, initial encounter Additional Impressions: Laceration of left index finger w/o foreign body w/o damage to nail Qualified Codes: S61.211A - Laceration without foreign body of left index finger without damage to nail, initial encounter Fracture of distal phalanx of left index finger Qualified Codes: S62.661B - Nondisplaced fracture of distal phalanx of left index finger, initial encounter for open fracture Disposition: HOME, SELF-CARE Condition: Stable Departure-Patient Inst. Decision time for Depature: 18:51 Referrals: SUSY ALBA MD (PCP/Family) Primary Care Physician Patient Instructions: Common Finger Injuries ED, Crush Injury (DC), Finger Fracture ED, Laceration Repair With Stitches (DC) Add. Discharge Instructions: Keep dressing on, clean and dry for first 24 hours. Then you may remove it and wash with soap and water but do not soak it. Apply antibiotic ointment, nonstick dressing and splint to prevent you from bending finger and protecting it. Continue to keep the wound dressed and splinted for next 2 weeks and then have the stitches removed after 2 weeks. This could be done with Dr. Alba or if she is not comfortable with it you may need to see Dr. Cummings or his nurse practitioner Marcell Barriga by calling [phone]. If signs of infection such as redness streaking up your finger, hand and arm, fever over 101 F, or pus draining from the wound then return or seek medical care. Take the full course of antibiotics to treat for possible infection and help prevent it from developing. Elevate above heart level whenever possible to help with pain, swelling, and throbbing. Scripts Ibuprofen (Ibuprofen) 800 Mg Tablet 800 MG PO Q8H PRN for PAIN for 10 Days, #30 TAB 0 Refills Prov: ODALYS ROBERTS MD 09/29/20 Hydrocodone/Acetaminophen (Hydrocodone-Acetamin 5-325 mg) 1 Each Tablet 1 TAB PO Q8H PRN for PAIN-SEVERE (8-10) for 4 Days, #12 TAB 0 Refills Prov: ODALYS ROBERTS MD 09/29/20 Amoxicillin/Potassium Clav (Amox Tr-K Clv 875-125 mg Tab) 1 Each Tablet 1 EACH PO BID for open fracture finger for 10 Days, #20 TAB 0 Refills Prov: ODALYS ROBERTS MD 09/29/20 Work/School Note: Work Release Form Date Seen in the Emergency Department: Sep 29, 2020 Return to Work: Sep 30, 2020 Other Restrictions Listed Below: Keep finger injury covered, clean and splinted for next 2 weeks. Images Extremities-Upper 1 - Contusion, Ecchymosis, Laceration (1.4 cm flap laceration to DIP joint along flexor surface of the left index finger), Tenderness ODALYS ROBERTS MD Sep 29, 2020 16:51
--- NOTE | 2020-09-29 17:05 | Diagnostic Imaging Report ---
INDICATION: 2nd digit injury. COMPARISON: None. EXAMINATION: Three views of the left 2nd digit. FINDINGS: Cortical defect involving the posterior aspect of the base of the distal phalanx. This is probably a nondisplaced fracture. There is no intra-articular involvement. No foreign body is seen. IMPRESSION: Questionable cortical fracture at posterior base of the distal phalanx. Please correlate with point tenderness. Dictated by: Dictated on workstation # [id number]
[2020-09-29] MEDS ORDERED: ACHD5005 PO (18:50)
[2020-09-29] MEDS ORDERED: IBUP-1780 PO (18:50)
[2020-09-29] MEDS ORDERED: AMOX1TAB12 PO (18:50)
[2020-09-29 18:59] VITALS: BP 151/86
== END 2020-09-29 18:59 | disposition home or self-care (01) ==
LOC: EDUNIT# 16:40 → ER FS 16:41
DX: S62.661B Nondisplaced fracture of distal phalanx of left index finger, initial encounter for open fracture (principal); I10 Essential (primary) hypertension; G43.909 Migraine, unspecified, not intractable, without status migrainosus; Z77.22 Contact with and (suspected) exposure to environmental tobacco smoke (acute) (chronic); Z88.1 Allergy status to other antibiotic agents; W23.1XXA Caught, crushed, jammed, or pinched between stationary objects, initial encounter; Y92.009 Unspecified place in unspecified non-institutional (private) residence as the place of occurrence of the external cause
CPT/HCPCS: 12011; 29130; 73140; 99284; A6223